=== PATIENT | male | born 1970 | race African-American/Black ===

== ENCOUNTER 2018-04-05 20:16 | Emergency (ER) | payer SELFPAY ==
[~2018-04-05] VITALS: Ht 188 cm; Wt 84.0 kg
[2018-04-06 00:34] VITALS: BP 146/70
== END 2018-04-06 00:37 | disposition home or self-care (01) ==
LOC: ER 20:16
DX: R04.0 Epistaxis (principal); F17.200 Nicotine dependence, unspecified, uncomplicated; Z93.0 Tracheostomy status; Z88.0 Allergy status to penicillin; F10.21 Alcohol dependence, in remission
CPT/HCPCS: 99283